=== PATIENT | male | born 1980 | race Caucasian/White ===

== ENCOUNTER 2017-01-05 21:53 | Emergency (ER) | payer OTHER ==
[~2017-01-05] VITALS: Ht 180.3 cm; Wt 104.6 kg
[~2017-01-05 21:53] MED LIST: FLOMAX0.4 MG PO; MOTRIN600 MG PO; NAPROSYN500 MG PO; NORCO 5/3251 TABLET PO; TIMOLOL MALEATE15 M1 BOTH EYES
[2017-01-05] MEDS ORDERED: LISINOPRIL10 MG PO (23:37)
[2017-01-06] MEDS ORDERED: ZOFRAN ODT4 MG PO (00:03)
[2017-01-06] MEDS ORDERED: PEN-VEE K,VEET500 MG PO (00:03)
[2017-01-06] MEDS ORDERED: MOTRIN800 MG PO (00:03)
[2017-01-06 00:11] VITALS: BP 120/87
== END 2017-01-06 00:12 | disposition home or self-care (01) ==
LOC: EME 21:53 → RME 21:53
DX: G89.18 Other acute postprocedural pain (principal); K08.89 Other specified disorders of teeth and supporting structures; K08.409 Partial loss of teeth, unspecified cause, unspecified class
CPT/HCPCS: 99281; 99284

== ENCOUNTER 2018-01-15 20:52 | Emergency (ER) | payer OTHER ==
[~2018-01-15] VITALS: Ht 180.3 cm; Wt 100.5 kg
[~2018-01-15 20:52] MED LIST changes: +LISINOPRIL10 MG PO; +MOTRIN800 MG PO; +PEN-VEE K,VEET500 MG PO; +ZOFRAN ODT4 MG PO
[2018-01-15 21:37] LABS: HEMATOCRIT 44.9 % (38.0-50.0); HEMOGLOBIN 15.6 G/DL (12.5-16.6); MCH 30.8 PG (29.0-34.0); MCHC 34.7 G/DL (30.0-36.0); MCV 88.7 FL (86-99); PLATELET COUNT 192 K/uL (156-360); RBC DIS.WIDTH-CV 12.3 % (11.8-14.6); RBC DIS.WIDTH-SD 39.9 % (39-53); RED BLOOD COUNT 5.06 M/uL (4.00-5.50); WHITE BLOOD COUNT 5.8 K/uL (4.1-10.2)
[2018-01-15 21:50] LABS: ALBUMIN 4.7 g/dL (3.2-4.8); CHLORIDE 107 mEq/L (99-109); POTASSIUM 4.1 mEq/L (3.7-5.4); SODIUM 143 mEq/L (136-147)
[2018-01-15 21:53] LABS: GLUCOSE 90 mg/dL (70-99); TOTAL PROTEIN 7.8 g/dL (6.4-8.3)
[2018-01-15 21:55] LABS: TOTAL BILIRUBIN 0.5 mg/dL (0.0-1.0)
[2018-01-15 21:56] LABS: ALKALINE PHOSPHATASE 68 IU/L (3-129); CREATININE 1.1 mg/dL (0.6-1.3); GFR ESTIMATE (CALCULATED) > 59 mL/min/ (58.99-99999)
[2018-01-15 21:57] LABS: UREA NITROGEN (BUN) 16 mg/dL (9-23)
[2018-01-15 21:58] LABS: AST (GOT) 27 IU/L (2-34)
[2018-01-15 21:59] LABS: ALT (GPT) 46 IU/L (3-49)
[2018-01-15 22:10] LABS: APPEARANCE SL.HAZY ((CLEAR)); BILIRUBIN NEGATIVE; BLOOD NEGATIVE; COLOR YELLOW ((YELLOW)); GLUCOSE (STRIP) NEGATIVE; KETONES NEGATIVE; LEUKOCYTES TRACE; NITRITE NEGATIVE; PROTEIN (STRIP) NEGATIVE; SPECIFIC GRAVITY 1.021 (1.000-1.030); UROBILINOGEN 0.2 MG/DL (0.2-1.0)
[2018-01-15 22:13] LABS: BACTERIA NONE SEEN /HPF; EPITHELIAL CELLS RARE /HPF; MUCUS TRACE /LPF; RED BLOOD CELLS 0-5 /HPF (0-5); UCUL ADDED? YES
[2018-01-15] MEDS ORDERED: NAPROSYN500 MG PO (22:35)
[2018-01-15] MEDS ORDERED: FLEXERIL10 MG PO (22:35)
[2018-01-15 23:02] VITALS: BP 118/84
== END 2018-01-15 23:07 | disposition home or self-care (01) ==
LOC: EME 20:52
DX: M54.5 Low back pain (principal); I10 Essential (primary) hypertension; H40.9 Unspecified glaucoma; Z87.442 Personal history of urinary calculi
CPT/HCPCS: 80053; 81003; 85027; 87086; 99281; 99284